=== PATIENT | female | born 1985 | race African-American/Black ===

== ENCOUNTER 2017-01-20 18:14 | Emergency (ER) | payer OTHER ==
[~2017-01-20] VITALS: Ht 157.5 cm; Wt 117.0 kg
[2017-01-20 21:29] VITALS: BP 164/110
== END 2017-01-20 22:10 | disposition home or self-care (01) ==
LOC: ER 18:23
DX: S60.032A Contusion of left middle finger without damage to nail, initial encounter (principal); I10 Essential (primary) hypertension; W23.0XXA Caught, crushed, jammed, or pinched between moving objects, initial encounter; Y93.89 Activity, other specified; Y99.0 Civilian activity done for income or pay; Y92.69 Other specified industrial and construction area as the place of occurrence of the external cause
CPT/HCPCS: 29130; 73130